=== PATIENT | male | born 2000 | race Caucasian/White ===

== ENCOUNTER 2018-03-28 02:32 | Emergency (ER) | payer SELFPAY ==
[2018-03-28 03:02] VITALS: BP 138/78; PULSE 106; RESP 18; TEMP 98; O2SAT 98
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
== END 2018-03-28 04:23 | disposition home or self-care (01) ==
LOC: NED 02:32 → NEPD 04:23
DX: S01.511A Laceration without foreign body of lip, initial encounter (principal); S01.81XA Laceration without foreign body of other part of head, initial encounter; Y09 Assault by unspecified means; Y92.252 Music hall as the place of occurrence of the external cause
CPT/HCPCS: 12013